=== PATIENT | female | born 1945 | race Caucasian/White ===

== ENCOUNTER → 2017-06-16 | Outpatient (CLI) | payer MEDICARE ==
[~2017-06-16] MED LIST: BUPIVACAINE MPF 0.25% 10 ML VIAL. ONE; LIDOCAINE 1% PF 30 ML VIAL. ONE; methylPREDNISolone ACETATE 40 MG/ML VIAL. ONE
== END | disposition home or self-care (01) ==
LOC: SURG 08:49
PROVIDERS: ATTEND Anesthesiology Pain Medicine
DX: M47.816 Spondylosis without myelopathy or radiculopathy, lumbar region (principal); I10 Essential (primary) hypertension; M19.91 Primary osteoarthritis, unspecified site; K21.9 Gastro-esophageal reflux disease without esophagitis; Z96.642 Presence of left artificial hip joint; Z88.1 Allergy status to other antibiotic agents
CPT/HCPCS: 64493; 64494; J1030; J2001; J3490

== ENCOUNTER 2019-09-27 16:00 | Emergency (ER) | payer MEDICARE ==
--- NOTE | 2019-09-27 16:21 | PHYS DOC ---
Past History Past Medical History: Asthma, Depression Adult General HPI HPI Patient is a 73-year-old female who was brought here by EMS from a local pharmacy area due to left hip and left femur injury. She was at the local pharmacy to get her medication, when she stepped outside she slipped on the ice, she fell down her left hip, having severe pain in the left hip and mid part of her left thigh. She Was not able to stand up and put any weight on her left leg. Patient denies any head or neck injury. She does complain of low back pain. Patient denies any numbness or weakness in her lower extremity. All other ROS is negative unless otherwise noted in HPI Review of Systems Review of Systems See above Physical Exam Physical Exam See above Constitutional: Well developed, well nourished, no acute distress, non-toxic appearance. [] HENT: Normocephalic, atraumatic, bilateral external ears normal, oropharynx moist, no oral exudates, nose normal. [] Eyes: PERRLA, EOMI, conjunctiva normal, no discharge. [] Neck: Normal range of motion, no tenderness, supple, no stridor. [] Cardiovascular:Heart rate regular rhythm, no murmur [] Lungs & Thorax: Bilateral breath sounds clear to auscultation [] Abdomen: Bowel sounds normal, soft, no tenderness, no masses, no pulsatile masses. [] Skin: Warm, dry, no erythema, no rash. [] Back: No tenderness, no CVA tenderness. [] Extremities: Left hip is tender to palpation, left mid femur is tender to palpation, no open wound. Left leg is shortened. There is strong dorsalis pedis pulse. Neurologic: Alert and oriented X 3, normal motor function, normal sensory function, no focal deficits noted. [] Psychologic: Affect normal, judgement normal, mood normal. [] EKG EKG [] Radiology/Procedures Radiology/Procedures [][address] [address] IMAGING REPORT Signed PATIENT: ANTHONY ACKERMANCOUNT: [id number] : 1945 LOCATION: ER AGE: 73 SEX: F EXAM STATUS: PRE ER ORD. PHYSICIAN: HELEN WARREN DO REASON: FELL ON ICE, LEFT HIP PAIN, LEFT FEMUR PAIN PROCEDURE: LEFT FEMUR XRAY Exam: Pelvis with left hip 2 views. Left femur 2 views INDICATION: Fall TECHNIQUE: Frontal view of pelvis with frontal and frog-leg lateral views of the left hip. Frontal and lateral views of the left femur Comparisons: None FINDINGS: Left hip arthroplasty changes noted. There is a periprosthetic fracture that is mildly displaced involving the left proximal femoral diaphysis. No other fractures are identified. Soft tissues are unremarkable. Joint spaces are well-maintained. There is a least moderate osteoarthritic change at the knee joint. IMPRESSION: 1. Periprosthetic fracture, mildly displaced involving the left proximal femoral diaphysis. 2. No other pelvic fracture identified. Electronically signed by: Jason Tamayo MD (09/27/2019 4:47 PM) [facility] DICTATED AND SIGNED BY: JASON TAMAYO MD DATE: 09/27/191646 CC: HELEN WARREN DO; SCOOTER PEÑALOZA PAC ~ Course & Med Decision Making Course & Med Decision Making Pertinent Labs and Imaging studies reviewed. (See chart for details) Patient is a 73-year-old female who sustained a fracture of her left femur just below the prosthesis viky, need to transfer to higher level of care. There is no orthopedic coverage at this hospital. Patient would like to be transferred to [facility] where her orthopedic surgeon, Dr. Norman Gu, practice. Dr. Von Chapman, Emergency Medicine doctor, at [facility], agreed to accept patient for transfer there today. Dragon Disclaimer Dragon Disclaimer This electronic medical record was generated, in whole or in part, using a voice recognition dictation system. Departure Departure: Disposition: 01 HOME/RESIDENCE PRIOR TO ADM Condition: STABLE Referrals: SCOOTER PEÑALOZA PAC (PCP) HELEN WARREN DO Sep 27, 2019 16:21
[2019-09-27] MEDS ORDERED: ONDANSETRON PF 4 MG/2 ML VIAL. IVP ONE (16:30)
--- NOTE | 2019-09-27 16:50 | RAD ---
Exam: Pelvis with left hip 2 views. Left femur 2 views INDICATION: Fall TECHNIQUE: Frontal view of pelvis with frontal and frog-leg lateral views of the left hip. Frontal and lateral views of the left femur Comparisons: None FINDINGS: Left hip arthroplasty changes noted. There is a periprosthetic fracture that is mildly displaced involving the left proximal femoral diaphysis. No other fractures are identified. Soft tissues are unremarkable. Joint spaces are well-maintained. There is a least moderate osteoarthritic change at the knee joint. IMPRESSION: 1. Periprosthetic fracture, mildly displaced involving the left proximal femoral diaphysis. 2. No other pelvic fracture identified. Electronically signed by: Jason Buckner MD (09/27/2019 4:47 PM) [facility]
[2019-09-27 17:29] VITALS: BP 154/90
--- NOTE | 2019-09-27 19:45 | RAD ---
INDICATION: Status post fall COMPARISON: None. IMPRESSION: Lumbar spine: 3 views obtained. Severe degenerative changes with osteophyte formation at the vertebral body endplates as well as facet hypertrophy. Mild retrolisthesis of T11 on T12, T12 on L1, L1 on 2, L2 on 3. Grade 1 anterolisthesis of L3 on 4 and L4 on 5. No definite acute fracture or dislocation. Severe calcific atherosclerosis. Electronically signed by: Arnol Gold MD (09/27/2019 7:43 PM) [facility] [place]
== END 2019-09-27 18:14 ==
LOC: ER 16:00
DX: S72.002A Fracture of unspecified part of neck of left femur, initial encounter for closed fracture (principal); M54.5 Low back pain; J45.909 Unspecified asthma, uncomplicated; F32.9 Major depressive disorder, single episode, unspecified; W00.0XXA Fall on same level due to ice and snow, initial encounter; Y93.89 Activity, other specified; Y92.89 Other specified places as the place of occurrence of the external cause; Y99.8 Other external cause status
CPT/HCPCS: 72100; 73502; 73552; 96374; 96375; 99285; J2405; J3010

== ENCOUNTER 2019-10-07 13:53 | Emergency (ER) | payer MEDICARE ==
[~2019-10-07] VITALS: Ht 165.1 cm; Wt 93.1 kg
--- NOTE | 2019-10-07 14:29 | PHYS DOC ---
Past History Past Medical History: Asthma, COPD, Hypertension Past Surgical History: Hip Replacement Alcohol Use: None Drug Use: None Adult General Chief Complaint Chief Complaint: CONSTIPATION HPI HPI 73-year-old female presents with constipation. She has not had a bowel movement in 5 days. She recently had hip surgery and has not had a bowel movement since. She was at a rehabilitation facility. He attempted to do an enema today without effect. The center in the emergency room. The patient had this once previously with another surgery. She is on pain medication. She denies nausea or vomiting. No fever or chills. No significant abdominal pain. Review of Systems Review of Systems Constitutional: Denies fever or chills [] Eyes: Denies change in visual acuity, redness, or eye pain [] HENT: Denies nasal congestion or sore throat [] Respiratory: Denies cough or shortness of breath [] Cardiovascular: No additional information not addressed in HPI [] GI: Constipation. Denies abdominal pain, nausea, vomiting, bloody stools or diarrhea [] : Denies dysuria or hematuria [] Musculoskeletal: Denies back pain or joint pain [] Integument: Denies rash or skin lesions [] Neurologic: Denies headache, focal weakness or sensory changes [] Endocrine: Denies polyuria or polydipsia [] All other systems were reviewed and found to be within normal limits, except as documented in this note. Allergies Allergies Allergies Coded Allergies Type Severity Reaction Last Updated Verified azithromycin Allergy Unknown 09/27/19 Yes celecoxib Allergy Unknown 09/27/19 Yes codeine Allergy Unknown 09/27/19 Yes erythromycin base Allergy Unknown 10/07/19 Yes hydrocodone Allergy Unknown 09/27/19 Yes metoprolol Allergy Unknown 09/27/19 Yes Physical Exam Physical Exam Constitutional: Well developed, obese, well nourished, no acute distress, non- toxic appearance. [] HENT: Normocephalic, atraumatic, bilateral external ears normal, oropharynx moist, no oral exudates, nose normal. [] Eyes: PERRLA, EOMI, conjunctiva normal, no discharge. [] Neck: Normal range of motion, no tenderness, supple, no stridor. [] Cardiovascular:Heart rate regular rhythm, no murmur [] Lungs & Thorax: Bilateral breath sounds clear to auscultation [] Abdomen: Bowel sounds normal, soft, no tenderness, no masses, no pulsatile masses. [] Skin: Warm, dry, no erythema, no rash. [] Back: No tenderness, no CVA tenderness. [] Extremities: No tenderness, no cyanosis, no clubbing, ROM intact, no edema. [] Neurologic: Alert and oriented X 3, normal motor function, normal sensory function, no focal deficits noted. [] Psychologic: Affect normal, judgement normal, mood normal. [] EKG EKG [] Radiology/Procedures Radiology/Procedures [] Course & Med Decision Making Course & Med Decision Making Pertinent Labs and Imaging studies reviewed. (See chart for details) We gave the patient magnesium citrate and she had some liquid stool. She still had rectal fullness. I performed a manual extraction of stool to get things started. She had a moderate amount of firm stool in the rectal vault. We then followed this up with an enema. The patient's labs are significant for hemoglobin of 8.7. At no previous for comparison. The patient is not complaining of any dizziness, shortness of breath, or headache. She did recently have surgery on this anemia is likely posthemorrhagic. She'll continue to follow up with her surgeon as previously planned. She is stable for discharge at this time. The patient had a large amount of stool after the enema. She is feeling better. She would like to be discharged. She stable for discharge at this time. [] Dragon Disclaimer Dragon Disclaimer This electronic medical record was generated, in whole or in part, using a voice recognition dictation system. Departure Departure: Impression: Primary Impression: Constipation due to pain medication therapy Disposition: 01 HOME, SELF-CARE Condition: IMPROVED Referrals: SCOOTER PEÑALOZA PAC (PCP) Patient Instructions: Constipation, Adult, [id number] STEVE COE DO Oct 07, 2019 14:29
[2019-10-07] MEDS ORDERED: IV NORMAL SALINE 1,000ML 1,000 ML IV ONE (14:30)
[2019-10-07] MEDS ORDERED: MAGNESIUM CITRATE 296 ML SOLUTION. PO ONE (15:00)
[2019-10-07] MEDS ORDERED: ONDANSETRON PF 4 MG/2 ML VIAL. IVP ONE (15:00)
[2019-10-07] MEDS ORDERED: SODIUM PHOSPHATES 19/7GM 133 ML ENEMA. PR ONE (15:00)
[2019-10-07 15:13] LABS: BASO # 0.1 x10^3/uL (0.0-0.2); BASO % 1 % (0-3); EOS # 0.2 x10^3/uL (0.0-0.7); EOS % 2 % (0-3); HEMATOCRIT 27.9 % (36.0-47.0); HEMOGLOBIN 8.7 g/dL (12.0-15.5); LYMPH # 1.2 x10^3/uL (1.0-4.8); LYMPH % 10 % (24-48); MEAN CORPUSCULAR HEMOGLOBIN 29 pg (25-35); MEAN CORPUSCULAR HGB CONC 31 g/dL (31-37); MEAN CORPUSCULAR VOLUME 93 fL (79-100); MONO # 0.8 x10^3/uL (0.0-1.1); MONO % 7 % (0-9); NEUT # 9.6 x10^3uL (1.8-7.7); NEUT % 80 % (31-73); PLATELET COUNT 423 x10^3/uL (140-400); RED CELL DISTRIBUTION WIDTH 14.3 % (11.5-14.5); WHITE BLOOD COUNT 11.9 x10^3/uL (4.0-11.0)
[2019-10-07 15:20] LABS: CREATININE 0.7 mg/dL (0.6-1.0); POTASSIUM 4.1 mmol/L (3.5-5.1)
[2019-10-07 15:27] LABS: ALBUMIN 2.7 g/dL (3.4-5.0); ALBUMIN/GLOBULIN RATIO 0.8 (1.0-1.7); TOTAL BILIRUBIN 0.3 mg/dL (0.2-1.0); TOTAL PROTEIN 6.2 g/dL (6.4-8.2)
[2019-10-07 17:38] VITALS: BP 129/62
== END 2019-10-07 17:43 | disposition home or self-care (01) ==
LOC: ER 13:53
DX: K59.03 Drug induced constipation (principal); T50.905A Adverse effect of unspecified drugs, medicaments and biological substances, initial encounter; J44.9 Chronic obstructive pulmonary disease, unspecified; I10 Essential (primary) hypertension; Z88.1 Allergy status to other antibiotic agents; Z88.5 Allergy status to narcotic agent; Z88.8 Allergy status to other drugs, medicaments and biological substances; Y92.89 Other specified places as the place of occurrence of the external cause
CPT/HCPCS: 36415; 80053; 85025; 96374; 99285; J2405; J7030

== ENCOUNTER 2019-10-24 14:24 | Emergency (ER) | payer MEDICARE ==
[~2019-10-24] VITALS: Ht 165.1 cm; Wt 89.8 kg
[2019-10-24] MEDS ORDERED: oxyCODONE/APAP 5/325 1 TAB TABLET PO ONE (14:45)
[2019-10-24] MEDS ORDERED: ONDANSETRON ODT 4 MG TAB.RAPDIS PO ONE (14:45)
[2019-10-24] MEDS ORDERED: MORPHINE SULFATE 4 MG/ML DISP.SYRIN. ONE (15:09)
[2019-10-24] MEDS ORDERED: MORPHINE SULFATE 4 MG/ML DISP.SYRIN. IV ONE (15:15)
[2019-10-24] MEDS ORDERED: PROPOFOL 20 ML IV ONE (15:46)
--- NOTE | 2019-10-24 15:49 | RAD ---
Examination: 2 views of the left hip HISTORY: History of left hip dislocation COMPARISON: 09/27/2019 Findings/ impression: There is dislocation of the left hip prosthesis with the femoral prosthesis displaced superiorly and laterally in relation to the acetabular cup. There is fracture of the greater trochanter about the femoral prosthesis. Electronically signed by: Cornelio Slade MD (10/24/2019 3:47 PM) [facility]
--- NOTE | 2019-10-24 15:58 | PHYS DOC ---
MODERATE SEDATION ASSESSMENT* RISKS/ALTERNATIVES Risks/Alternatives Risks and alternatives of this type of sedation and procedure discussed with: RISK/ALTERNATIVES DISCUSSED: Patient H & P ON CHART H & P H & P on chart and reviewed for co-morbid conditions and appropriate labs. H&P ON CHART: Yes STATUS PREG STATUS ASSESSED: N/A MEDS/ALLERGIES REVIEWED Meds/Allergies Reviewed Medications and Allergies including time and route of recently administered narcotics and sedatives. MEDS/ALLERGIES REVIEWED: Yes ASA RATING ASA RATING: II AIRWAY ASSESSMENT Airway Assessment Airway patency, oral function limitations, presence of caps, crowns, dentures, partials, and ability to extend neck assessed. AIRWAY ASSESSMENT: Yes MALLAMPATI SCORE MALLAMPATI SCORE: I PRE-SEDATION ASSESSMENT PRE-SEDATION PHYSICAL: Yes EFRA HOLLIDAY MD Oct 24, 2019 15:58
--- NOTE | 2019-10-24 16:01 | PHYS DOC ---
Past History Past Medical History: Asthma Additional Past Medical Histor: hypertension, femur surgery 09/30/19. on xarelto for ppx. o2 2l at night, Past Medical History no chf no cad no copd does not know why on o2 at night, ?toro Past Surgical History: Hysterectomy, Other Additional Past Surgical Histo: LEFT HIP/FEMUR Alcohol Use: None Drug Use: None Adult General Chief Complaint Chief Complaint: UPPER EXTREMITY PAIN HPI HPI Patient is a 72-year-old female brought in by ambulance after basically she was at a rehabilitation facility she was due to leave today she just swung her legs over the edge of the bed did not really even bear weight severe pain noted left hip felt like something popped. No numbness or tingling no other injury no headache no neck pain. Patient's pain is currently severe localized to the hip and the lateral aspect of the femur. Review of Systems Review of Systems Constitutional: Denies fever or chills [] Eyes: Denies change in visual acuity, redness, or eye pain [] HENT: Denies nasal congestion or sore throat [] Respiratory: Denies cough or shortness of breath [] Neurologic: Denies headache, focal weakness or sensory changes [] Endocrine: Denies polyuria or polydipsia [] All other systems were reviewed and found to be within normal limits, except as documented in this note. Current Medications Current Medications Current Medications Medications (Trade) Dose Ordered Sig/Tanya Start Time Stop Time Status Last Admin Dose Admin Fentanyl Citrate (Fentanyl 2ml Vial) 50 mcg 1X ONCE 10/24/19 15:45 10/24/19 15:46 DC Morphine Sulfate (Morphine 4mg Syringe) 4 mg STK-MED ONCE 10/24/19 15:09 10/24/19 15:09 DC Ondansetron HCl (Zofran Odt) 4 mg 1X ONCE 10/24/19 14:45 10/24/19 15:09 DC 10/24/19 14:45 4 MG Oxycodone/ Acetaminophen (Percocet 5/325) 2 tab 1X ONCE 10/24/19 14:45 10/24/19 15:09 DC 10/24/19 14:45 2 TAB Propofol 20 ml @ As Directed STK-MED ONCE 10/24/19 15:46 10/24/19 15:47 DC Allergies Allergies Allergies Coded Allergies Type Severity Reaction Last Updated Verified azithromycin Allergy Unknown 09/27/19 Yes celecoxib Allergy Unknown 09/27/19 Yes codeine Allergy Unknown 09/27/19 Yes erythromycin base Allergy Unknown 10/07/19 Yes hydrocodone Allergy Unknown 09/27/19 Yes metoprolol Allergy Unknown 09/27/19 Yes Physical Exam Physical Exam Constitutional: Well developed, well nourished, no acute distress, non-toxic appearance. [] HENT: Normocephalic, atraumatic, bilateral external ears normal, oropharynx moist, no oral exudates, nose normal. [] Eyes: PERRLA, EOMI, conjunctiva normal, no discharge. [] Neck: Normal range of motion, no tenderness, supple, no stridor. [] Cardiovascular:Heart rate regular rhythm, no murmur [] Lungs & Thorax: Bilateral breath sounds clear to auscultation [] Abdomen: Bowel sounds normal, soft, no tenderness, no masses, no pulsatile masses. [] Extremities the hip is held in flexion unable to extend it secondary to pain pedal pulse intact sensation intact distally there is some mild swelling noted in the mid femur skin is intact tenderness is prominent there is significant muscle spasm noted Neurologic: Alert and oriented X 3, normal motor function, normal sensory f unction, no focal deficits noted. [] Psychologic: Affect normal, judgement normal, mood normal. [] Current Patient Data Vital Signs Vital Signs Date Time Temp Pulse Resp B/P (MAP) Pulse Ox O2 Delivery O2 Flow Rate FiO2 10/24/19 15:22 20 Room Air 10/24/19 14:55 97.8 75 162/58 (92) 98 EKG EKG [] Radiology/Procedures Radiology/Procedures [] IMPRESSION: 1. Improved alignment of the left hip arthroplasty on single view. 2. Displaced acute fracture to the left greater trochanter. Electronically signed by: Jason Buckner MD (10/24/2019 4:28 PM) [id number] Impressions: There is dislocation of the left hip prosthesis with the femoral prosthesis displaced superiorly and laterally in relation to the acetabular cup. There is fracture of the greater trochanter about the femoral prosthesis. Electronically signed by: Cornelio Slade MD (10/24/2019 3:47 PM) [facility] [place] DICTATED AND SIGNED BY: CORNELIO SLADE MD DATE: 10/24/19 1547 CC: EFRA HOLLIDAY MD; SCOOTER PEÑALOZA PAC ~ Course & Med Decision Making Course & Med Decision Making Pertinent Labs and Imaging studies reviewed. (See chart for details) []d/w dr nowak at 345 pm, recommends trial of reduction at [facility] Procedure note: Informed consent was obtained timeout was performed at 4:05 PM. Patient received a total of a 80 mg of propofol. We did do preoxygenation with nonrebreather patient was on end-tidal CO2 the whole time had no desaturation no apnea. I did use typical traction and internal rotation technique and did reduce the hip easily clunk was noted. Postreduction x-ray was also noted. Patient did have a periprosthetic fracture back on September 30. There are greater trochanter fragment is displaced slightly laterally post reduction. I did speak with Dr. Madrigal at 4:40 PM hair salon manager for Dr. Nowak, reviewed the case and the x-ray results. States that if patient requires admission ok to call hospitalist to do so from their perspective otherwise can follow-up with Dr. Nowak. I spoke with the patient and family are very concerned about her ability to care for herself at this time pending a call from the hospitalist at over the [facility] we will order some basic lab work as well. Patient is neurologically intact following the reduction with a good pedal pulse. I did speak with the hospitalist name Dr. de león , reviewed case patient's having persistent pain and inability to ambulate status post hip reduction accepting doctor will be Dr. Breaux, basic labs are currently pending patient's family strongly consent to transfer back to the [facility]. Lynn Disclaimer Dragon Disclaimer This electronic medical record was generated, in whole or in part, using a voice recognition dictation system. Departure Departure: Impression: Primary Impression: Hip dislocation, left Disposition: XFER SHT-TRM HOSP Condition: STABLE Referrals: SCOOTER PEÑALOZA PAC (PCP) EFRA HOLLIDAY MD Oct 24, 2019 16:01
[2019-10-24 16:03] VITALS: BP 133/77
--- NOTE | 2019-10-24 16:31 | RAD ---
Exam: Left hip one view INDICATION: Post reduction TECHNIQUE: Frontal view of the left hip Comparisons: Radiograph same day FINDINGS: Improved alignment of the left hip arthroplasty compared to the prior study reviewed. There is redemonstration of displaced acute fracture through the left greater trochanter. Soft tissues are unremarkable. IMPRESSION: 1. Improved alignment of the left hip arthroplasty on single view. 2. Displaced acute fracture to the left greater trochanter. Electronically signed by: Jason Buckner MD (10/24/2019 4:28 PM) [id number]
[2019-10-24 17:55] LABS: BASO # 0.1 x10^3/uL (0.0-0.2); BASO % 1 % (0-3); EOS % 0 % (0-3); HEMATOCRIT 32.5 % (36.0-47.0); HEMOGLOBIN 10.4 g/dL (12.0-15.5); LYMPH # 1.2 x10^3/uL (1.0-4.8); LYMPH % 12 % (24-48); MEAN CORPUSCULAR HEMOGLOBIN 28 pg (25-35); MEAN CORPUSCULAR HGB CONC 32 g/dL (31-37); MEAN CORPUSCULAR VOLUME 89 fL (79-100); MONO # 0.5 x10^3/uL (0.0-1.1); MONO % 5 % (0-9); NEUT # 8.4 x10^3uL (1.8-7.7); NEUT % 82 % (31-73); PLATELET COUNT 328 x10^3/uL (140-400); RED BLOOD COUNT 3.67 x10^6/uL (3.50-5.40); RED CELL DISTRIBUTION WIDTH 15.2 % (11.5-14.5); WHITE BLOOD COUNT 10.3 x10^3/uL (4.0-11.0)
[2019-10-24 18:04] LABS: CALCIUM 8.6 mg/dL (8.5-10.1); CREATININE 0.9 mg/dL (0.6-1.0); GFR 61.4
== END 2019-10-24 18:00 | disposition short-term general hospital (02) ==
LOC: ER 14:32
DX: T84.021A Dislocation of internal left hip prosthesis, initial encounter (principal); J45.909 Unspecified asthma, uncomplicated; I10 Essential (primary) hypertension; Z90.710 Acquired absence of both cervix and uterus; Z88.1 Allergy status to other antibiotic agents; Z88.5 Allergy status to narcotic agent; Z88.8 Allergy status to other drugs, medicaments and biological substances; X50.1XXA Overexertion from prolonged static or awkward postures, initial encounter; Y93.89 Activity, other specified; Y92.89 Other specified places as the place of occurrence of the external cause; Y99.8 Other external cause status
CPT/HCPCS: 27265; 36415; 73502; 80048; 85025; 96374; 99285; J3010; Q0162

== ENCOUNTER 2020-11-02 16:15 | Emergency (ER) | payer MEDICARE ==
[~2020-11-02] VITALS: Ht 165.1 cm; Wt 90.7 kg
[2020-11-02 16:30] VITALS: BP 152/76
--- NOTE | 2020-11-02 16:50 | PHYS DOC ---
Past History Past Medical History: Asthma Additional Past Medical Histor: hypertension, femur surgery 09/30/19. on xarelto for ppx. o2 2l at night, Past Surgical History: Hysterectomy, Other Additional Past Surgical Histo: LEFT HIP/FEMUR Alcohol Use: None Drug Use: None General Adult EDM: Chief Complaint: URINARY FREQUENCY HPI: HPI: Patient is a 74-year-old female who presents with dysuria and frequency, and lower back pain. Patient states that she started having symptoms 3 days ago. Patient denies taking anything at home for urinary symptoms. Denies fever. Review of Systems: Review of Systems: Constitutional: Denies fever or chills Eyes: Denies change in visual acuity HENT: Denies nasal congestion or sore throat Respiratory: Denies cough or shortness of breath Cardiovascular: Denies chest pain or edema GI: Denies abdominal pain, nausea, vomiting, bloody stools or diarrhea : Reports dysuria, frequency Musculoskeletal: Denies back pain or joint pain Integument: Denies rash Neurologic: Denies headache, focal weakness or sensory changes Endocrine: Denies polyuria or polydipsia Lymphatic: Denies swollen glands Psychiatric: Denies depression or anxiety Allergies: Allergies: Allergies Coded Allergies Type Severity Reaction Last Updated Verified azithromycin Allergy Unknown 09/27/19 Yes celecoxib Allergy Unknown 09/27/19 Yes codeine Allergy Unknown 09/27/19 Yes erythromycin base Allergy Unknown 10/07/19 Yes hydrocodone Allergy Unknown 09/27/19 Yes metoprolol Allergy Unknown 09/27/19 Yes Physical Exam: PE: Constitutional: Well developed, well nourished, no acute distress, non-toxic appearance. [] HENT: Normocephalic, atraumatic, bilateral external ears normal, oropharynx moist, no oral exudates, nose normal. [] Eyes: PERRLA, EOMI, conjunctiva normal, no discharge. [] Neck: Normal range of motion, no tenderness, supple, no stridor. [] Cardiovascular:Heart rate regular rhythm, no murmur [] Lungs & Thorax: Bilateral breath sounds clear to auscultation [] Abdomen: Bowel sounds normal, soft, no tenderness, no masses, no pulsatile masses. [] Skin: Warm, dry, no erythema, no rash. [] Back: Middle, lower back tenderness, no CVA tenderness. [] Extremities: No tenderness, no cyanosis, no clubbing, ROM intact, no edema. [] Neurologic: Alert and oriented X 3, normal motor function, normal sensory function, no focal deficits noted. [] Psychologic: Affect normal, judgement normal, mood normal. [] Current Patient Data: Vital Signs: Vital Signs Date Time Temp Pulse Resp B/P (MAP) Pulse Ox O2 Delivery O2 Flow Rate FiO2 11/02/20 16:30 98.3 64 20 152/76 (101) 96 Room Air EKG: EKG: [] Radiology/Procedures: Radiology/Procedures: [] Heart Score: Risk Factors: Risk Factors: DM, Current or recent (<one month) smoker, HTN, HLP, family history of CAD, obesity. Risk Scores: Score 0 - 3: 2.5% MACE over next 6 weeks - Discharge Home Score 4 - 6: 20.3% MACE over next 6 weeks - Admit for Clinical Observation Score 7 - 10: 72.7% MACE over next 6 weeks - Early Invasive Strategies Course & Med Decision Making: Course & Med Decision Making Pertinent Labs and Imaging studies reviewed. (See chart for details) []Patient is a 74-year-old female who presents with dysuria and frequency, and lower back pain. Patient states that she started having symptoms 3 days ago. Patient denies taking anything at home for urinary symptoms. UA ordered to rule out infection. UA is positive for nitrates and WBCs. Antibiotic ordered for patient to take at home. Patient instructed to increase fluids. Patient to return to emergency room with worsening symptoms or concerns Dragon Disclaimer: Dragon Disclaimer: This electronic medical record was generated, in whole or in part, using a voice recognition dictation system. Departure Departure: Impression: Primary Impression: UTI (urinary tract infection) Qualified Codes: N30.01 - Acute cystitis with hematuria Disposition: 01 DC HOME SELF CARE/HOMELESS Condition: STABLE Referrals: SCOOTER PEÑALOZA PAC (PCP) Patient Instructions: Urinary Tract Infection, Child Additional Instructions: You were seen in the emergency room for pain with urination and frequency. Your urine was positive for infection. I will send you home with an antibiotic to take. Please take the antibiotic as directed even when symptoms have resolved. Please make sure to increase your fluids. Return to the emergency room with worsening symptoms or concerns. EMERGENCY DEPARTMENT GENERAL DISCHARGE INSTRUCTIONS Thank you for coming to [facility] (ED) today and trusting us with you care. We trust that you had a positivie experience in our Emergency Department. If you wish to speak to the department management, you may call the director at [phone]. YOUR FOLLOW UP INSTRUCTIONS ARE FOLLOWS: 1. Do you have a private Doctor? If you do not have a private doctor, please ask for a resource list of physicians or clinics that may be able to assist you with follow up care. 2. The Emergency Physician has interpreted your x-rays. The X-Ray specialist will also review them. If there is a change in the findings, you will be notified in 48 hours when at all possible. 3. A lab test or culture has been done, your results will be reviewed and you will be notified if you need a change in treatment. ADDITIONAL INSTRUCTIONS AND INFORMATION: 1. Your care today has been supervised by a physician who is specially trained in emergency care. Many problems require more than one evaluation for a complete diagnosis and treatment. We recommend that you schedule your follow up appointment as recommended to ensure complete treatment of you illness or injury. If you are unable to obtain follow up care and continue to have a problem, or if your condition worsens, we recommend that you return to the ED. 2. We are not able to safely determine your condition over the phone nor are we able to give sound medical advice over the phone. For these safety reasons, if you call for medical advice we will ask you to come to the ED for further evaluation. 3. If you have any questions regarding these discharge instructions please call the ED at [phone]. SAFETY INFORMATION: In the interest of safety, wellness, and injury prevention; we encourage you to wear your sealbelt, if you smoke; quite smoking, and we encourage family to use a protective helmet for bicycling and other sporting events that present an increased risk for head injury. IF YOUR SYMPTOMS WORSEN OR NEW SYMPTOMS DEVELOP, OR YOU HAVE CONCERNS ABOUT YOUR CONDITION; OR IF YOUR CONDITION WORSENS WHILE YOU ARE WAITING FOR YOUR FOLLOW UP APPOINTMENT; EITHER CONTACT YOUR PRIMARY CARE DOCTOR, THE PHYSICIAN WHOSE NAME AND NUMBER YOU WERE GIVEN, OR RETURN TO THE ED IMMEDIATELY. Scripts Nitrofurantoin Macrocrystal (NITROFURANTOIN) 100 Mg Capsule 1 CAP PO BID for infection for 5 Days, #10 CAP Prov: ALICIA JAMES FISCAL AGENT 11/02/20 ALICIA JAMES FISCAL AGENT Nov 02, 2020 16:50
[2020-11-02 17:00] LABS: COLOR,URINE YELLOW
[2020-11-02 17:01] LABS: BILIRUBIN,URINE NEG (NEG); GLUCOSE,URINE NEG (NEG)
[2020-11-02 17:02] LABS: NITRITE,URINE POS (NEG); UROBILINOGEN,URINE 0.2 mg/dL (0.2 mg/dL)
[2020-11-02 17:04] LABS: CLARITY,URINE CLOUDY; RBC,URINE 20-40 /HPF (0-2); WBC,URINE >40 /HPF (0-4)
[2020-11-02 17:05] LABS: BACTERIA,URINE FEW /HPF (0-FEW); SQUAMOUS EPITHELIAL CELL,UR OCC /LPF
[2020-11-02] MEDS ORDERED: NITR100C PO (17:32)
== END 2020-11-02 17:42 | disposition home or self-care (01) ==
LOC: ER 16:15
DX: N30.01 Acute cystitis with hematuria (principal); J45.909 Unspecified asthma, uncomplicated; I10 Essential (primary) hypertension; Z90.710 Acquired absence of both cervix and uterus; Z88.1 Allergy status to other antibiotic agents; Z88.5 Allergy status to narcotic agent; Z88.8 Allergy status to other drugs, medicaments and biological substances
CPT/HCPCS: 81001; 87086; 99283

== ENCOUNTER 2020-11-28 10:32 | Emergency (ER) | payer MEDICARE ==
[~2020-11-28] VITALS: Ht 165.1 cm; Wt 90.7 kg
[~2020-11-28 10:32] MED LIST changes: -BUPIVACAINE MPF 0.25% 10 ML VIAL. ONE; -LIDOCAINE 1% PF 30 ML VIAL. ONE; +NITR100C PO; -methylPREDNISolone ACETATE 40 MG/ML VIAL. ONE
[2020-11-28] MEDS: ACETAMINOPHEN 325 MG TABLET PO ONE (11:17)
[2020-11-28] MEDS: CETIRIZINE HCL 10 MG TABLET PO PRN (11:17)
--- NOTE | 2020-11-28 11:22 | PHYS DOC ---
Past History Past Medical History: Asthma, Hypertension Additional Past Medical Histor: hypertension, femur surgery 09/30/19. on xarelto for ppx. o2 2l at night, Past Surgical History: Hysterectomy, Other Additional Past Surgical Histo: LEFT HIP/FEMUR Alcohol Use: None Drug Use: None Adult General Chief Complaint Chief Complaint: SKIN RASH/ABSCESS [facility] HPI Patient is a 75-year-old female who presents for adverse COVID-19 vaccination reaction. Reports getting MODERNA vaccination 10 days ago. Had this administered in right upper arm. Reports development of rash around injection site that is no larger than 5 cm that has become increasingly more pruritic. She has not taken anything at home because she states she is poor and does not have any home medications to utilize for this. She could not take the itching anymore and was concerned prompting her to come into our ER for evaluation. No fever, no chills, no feelings of throat closure, chest pain, shortness of breath, wheezing or other concerning signs or symptoms. Denies history of anaphylaxis in the past Review of Systems Review of Systems Fourteen body systems of review of systems have been reviewed. See HPI for pertinent positives and negative responses, other frankel all other systems are negative, non-pertinent or non-contributory Current Medications Current Medications Current Medications Medications (Trade) Dose Ordered Sig/Tanya Start Time Stop Time Status Last Admin Dose Admin Acetaminophen (Tylenol) 650 mg 1X ONCE 11/28/20 11:15 11/28/20 11:16 Cetirizine HCl (ZyrTEC) 10 mg PRN DAILY PRN 11/28/20 11:15 Allergies Allergies Allergies Coded Allergies Type Severity Reaction Last Updated Verified azithromycin Allergy Unknown 09/27/19 Yes celecoxib Allergy Unknown 09/27/19 Yes codeine Allergy Unknown 09/27/19 Yes erythromycin base Allergy Unknown 10/07/19 Yes hydrocodone Allergy Unknown 09/27/19 Yes metoprolol Allergy Unknown 09/27/19 Yes Physical Exam Physical Exam Constitutional: Well developed, well nourished, no acute distress, non-toxic appearance. HENT: Normocephalic, atraumatic, bilateral external ears normal, oropharynx moist, no oral exudates, nose normal. Eyes: PERRLA, EOMI, conjunctiva normal, no discharge. Neck: Normal range of motion, no tenderness, supple, no stridor. Cardiovascular: Heart rate regular, sinus rhythm, no murmurs rubs or gallops Lungs & Thorax: Bilateral breath sounds clear to auscultation Abdomen: Bowel sounds normal, soft, no tenderness, no masses, no pulsatile masses. Nonsurgical abdomen, no peritoneal signs Skin: Warm, dry, mild erythematous rash present on right deltoid over site of recent COVID-19 vaccination, no streaking, no palpable mass or abnormality, no fluctuance, no exudate or weeping, no other infectious or concerning findings Back: No tenderness, no CVA tenderness. Extremities: No tenderness, no cyanosis, no clubbing, ROM intact, no edema. Neurologic: Alert and oriented X 3, grossly normal motor & sensory function, no focal deficits noted. Psychologic: Affect normal, judgement normal, mood normal. Current Patient Data Vital Signs Vital Signs Date Time Temp Pulse Resp B/P (MAP) Pulse Ox O2 Delivery O2 Flow Rate FiO2 11/28/20 10:32 98.0 76 18 126/65 (85) 96 EKG EKG [] Radiology/Procedures Radiology/Procedures [] Heart Score C/O Chest Pain: No Risk Factors: Risk Factors: DM, Current or recent (<one month) smoker, HTN, HLP, family history of CAD, obesity. Risk Scores: Risk Factors: DM, Current or recent (<one month) smoker, HTN, HLP, family history of CAD, obesity. Course & Med Decision Making Course & Med Decision Making Hemodynamically stable patient with history consistent with delayed skin rash from recent med during her COVID-19 vaccination. History grossly nonconcerning Discussed no indication for further diagnostic work-up in ER setting Patient given p.o. Tylenol and Zyrtec today. Patient reports that she is "poor "and unable to afford anything at home. Continued supportive care was advised. She has no history of anaphylaxis, as such, I advised her to proceed with getting second dose of Mederma COVID-19 vaccination as previously scheduled but to notify providers administering such vaccination about her delayed skin reaction, they might consider administering in contralateral arm Strict return precautions were discussed with good understanding by patient, all questions and concerns addressed prior to ER departure in good condition Dragon Disclaimer Dragon Disclaimer This electronic medical record was generated, in whole or in part, using a voice recognition dictation system. Departure Departure: Impression: Primary Impression: Vaccine reaction Disposition: 01 DC HOME SELF CARE/HOMELESS Condition: GOOD Referrals: SCOOTER PEÑALOZA PAC (PCP) Additional Instructions: As discussed prior to ER departure, you are having a mild skin reaction due to to most recently during your recent administration of the COVID-19 vaccination. Although this is not common, it is not grossly abnormal. There was no indication for further diagnostic work-up in ER setting. Your physical exam was assuring. Please continue supportive care measures at home that include Tylenol as needed for pain and antihistamines such as Coco or Zyrtec as needed for itching. As discussed, I would follow-up with your primary care physician this upcoming week to review your ER visit today. I would also proc eed with getting the second dose of your COVID-19 vaccination as previously scheduled, I would notify the health care providers administering the vaccination about your skin reaction and they might consider administering it in your other arm. It was a pleasure to take care of you and I wish you the best going forward LIAT CARMONA DO Nov 28, 2020 11:21
== END 2020-11-28 11:28 | disposition home or self-care (01) ==
LOC: ER 10:32
DX: R21 Rash and other nonspecific skin eruption (principal); J45.909 Unspecified asthma, uncomplicated; I10 Essential (primary) hypertension; Z90.710 Acquired absence of both cervix and uterus; Z98.890 Other specified postprocedural states; Z88.1 Allergy status to other antibiotic agents; Z88.5 Allergy status to narcotic agent; Z88.8 Allergy status to other drugs, medicaments and biological substances
CPT/HCPCS: 99283

== ENCOUNTER → 2021-01-08 | Outpatient (CLI) | payer MEDICARE ==
[2020-11-28 10:32] VITALS: BP 126/65
--- NOTE | 2021-01-15 18:20 | RAD ---
DATE: 01/08/2021 EXAM: MAMMO MIRIAM SCREENING BILATERAL HISTORY: Screening COMPARISON: 01/04/2016, 05/18/2018, 04/03/2017 This study was interpreted with the benefit of Computerized Aided Detection (CAD). Breast Density: HETERO The breast parenchyma is heterogenously dense, which could reduce sensitivity of mammography. Breast parenchyma level C. FINDINGS: There are bilateral benign-appearing calcifications. No mass, suspicious calcification, or architectural distortion in either breast. IMPRESSION: No evidence of malignancy. BI-RADS CATEGORY: 1 NEGATIVE RECOMMENDED FOLLOW-UP: 12M 12 MONTH FOLLOW-UP PQRS compliance statement: Patient information was entered into a reminder system with a target due date for the next mammogram. Mammography is a sensitive method for finding small breast cancers, but it does not detect them all and is not a substitute for careful clinical examination. A negative mammogram does not negate a clinically suspicious finding and should not result in delay in biopsying a clinically suspicious abnormality. "Our facility is accredited by the [employer] Mammography Program."
== END ==
LOC: MAMMO 15:27
PROVIDERS: ATTEND Physician Assistant
DX: Z12.31 Encounter for screening mammogram for malignant neoplasm of breast (principal)
CPT/HCPCS: 77063; 77067